=== PATIENT | female | born 1935 | race Caucasian/White ===

== ENCOUNTER → 2017-05-14 | Outpatient (CLI) | payer MEDICARE ==
[~2017-05-14] MED LIST: ASPIRIN CHILDRE81 M1 PO; BUSPAR 10MG TAB10 MG PO; CARVEDILOL6.25 M1 PO; CELEBREX200 MG PO; DILTIAZEM HYDR180 M1 PO; FISH OIL1000 MG PO; FLAXSEED OIL1000 MG PO; LASIX40 MG PO; LEVOTHYROXIN0.025 M2 PO; LIBRAX 5 MG-2.51 CAP PO; LIBRAX CAPSULE1 EACH PO; LISINOPRIL5 MG PO; NIACIN500 M3 PO; OMEPRAZOLE20 MG PO; PATADAY 2.5 ML2.5 ML OP; PRILOSEC20 MG PO; VITAMIN B122500 MCG SL
[2017-05-14 11:36] LABS: AEROMONAS NOT DETECTED (NOT DETECTE)
[2017-05-14 11:37] LABS: ASTROVIRUS NOT DETECTED (NOT DETECTE); CYCLOSPORA CAYETANENSIS NOT DETECTED (NOT DETECTE); E COLI O157 NOT DETECTED (NOT DETECTE); ENTEROAGGREGATIVE E COLI NOT DETECTED (NOT DETECTE); ENTEROPATHOGENIC E COLI NOT DETECTED (NOT DETECTE); ENTEROTOXIGENIC E COLI NOT DETECTED (NOT DETECTE); NOROVIRUS NOT DETECTED (NOT DETECTE); SAPOVIRUS NOT DETECTED (NOT DETECTE); SHIGA-LIKE TOXIN PROD. E COLI NOT DETECTED (NOT DETECTE); SHIGELLA/ENTEROINVASIVE E COLI NOT DETECTED (NOT DETECTE); VIBRIO CHOLERAE NOT DETECTED (NOT DETECTE)
== END ==
LOC: LAB 11:34
PROVIDERS: Nurse Practitioner Acute Care
DX: R19.7 Diarrhea, unspecified (principal)